=== PATIENT | male | born 1960 | race Caucasian/White ===

== ENCOUNTER 2017-06-10 13:34 | Inpatient (IN) | payer BC ==
[2017-06-10 15:32] VITALS: BMI 25.8
--- NOTE | 2017-06-10 17:38 | HP ---
CIWA Score - CIWA Score Nausea/Vomitin-No Nausea/No Vomiting Muscle Tremors: 4-Moderate,w/Arms Extend Anxiety: 4-Mod. Anxious/Guarded Agitation: 4-Moderately Restless Paroxysmal Sweats: 1-Minimal Palms Moist Orientation: 0-Oriented Tacttile Disturbances: 3-Moderate Itch/Numb/Burn Auditory Disturbances: 0-None Visual Disturbances: 0-None Headache: 0-None Present CIWA-Ar Total Score: 16 Admission ROS BHS - HPI Chief Complaint: DETOX TX FOR ALCOHOL DEPENDENCE Allergies/Adverse Reactions: Allergies Allergy/AdvReac Type Severity Reaction Status Date / Time No Known Allergies Allergy Verified 06/10/17 16:47 History of Present Illness: 56 Y/O MALE WITH A HX OF ALCOHOL, COCAINE AND MARIJUANA DEPENDENCE SEEKING DETOX TX Exam Limitations: No Limitations - Ebola screening Have you traveled outside of the country in the last 21 days: No Have you had contact with anyone from an Ebola affected area: No Have you been sick,other than usual withdrawal symptoms: No Do you have a fever: No - Review of Systems Constitutional: Chills, Night Sweats EENT: reports: Blurred Vision, Tearing, Dental Problems (MISSING TEETH/CROWNS) Respiratory: reports: No Symptoms reported Cardiac: reports: Lightheadedness GI: reports: Diarrhea, Nausea, Poor Fluid Intake, Vomiting : reports: No Symptoms Reported Musculoskeletal: reports: Back Pain, Joint Pain, Muscle Pain Integumentary: reports: No Symptoms Reported Neuro: reports: Headache, Numbness, Tingling, Tremors, Unsteady Gait (USES CANE) , Dizziness Endocrine: reports: No Symptoms Reported Hematology: reports: No Symptoms Reported Psychiatric: reports: Orientated x3, Anxious Other Systems: Reviewed and Negative Patient History - Patient Medical History Hx Anemia: No Hx Asthma: No Hx Chronic Obstructive Pulmonary Disease (COPD): No Hx Cardiac Disorders: No Hx Hypertension: Yes (ON MED) Hx Hypercholesterolemia: No HX Cerebrovascular Accident: No Hx Seizures: No Hx Diabetes: No Hx Gastrointestinal Disorders: No Hx Genitourinary Disorders: No Hx Sexually Transmitted Disorders: Yes (chlamydia) Hx Renal Disease (ESRD): No Hx Thyroid Disease: No Hx Human Immunodeficiency Virus (HIV): No (NEGATIVE HX) Hx Hepatitis C: No Hx Depression: No Hx Suicide Attempt: No (DENIES) Hx Bipolar Disorder: No Hx Schizophrenia: No - Patient Surgical History Past Surgical History: Yes Hx Neurologic Surgery: No Hx Cataract Extraction: No Hx Cardiac Surgery: No Hx Lung Surgery: No Hx Breast Surgery: No Hx Breast Biopsy: No Hx Abdominal Surgery: No Hx Appendectomy: No Hx Cholecystectomy: No Hx Genitourinary Surgery: No Hx Orthopedic Surgery: Yes (fx, right ankle) Anesthesia Reaction: No - PPD History Previous Implant?: Yes Documented Results: Negative w/o proof Implanted On Prior [facility] Admission?: No PPD to be Administered?: Yes - Reproductive History Patient is a Female of Child Bearing Age (11 -55 yrs old): No (MALE) Patient : (N/A) - Smoking Cessation Smoking history: Current some day smoker Have you smoked in the past 12 months: Yes Cigars Per Day: 1 Hx Chewing Tobacco Use: No Initiated information on smoking cessation: Yes 'Breaking Loose' booklet given: 06/10/17 - Substance & Tx. History Hx Alcohol Use: Yes Hx Substance Use: Yes Substance Use Type: Alcohol, Cocaine, Marijuana Hx Substance Use Treatment: Yes ([facility]) - Substances Abused Cocaine Route: Inhalation Frequency: 3-6 times per week Amount used: $20 Age of first use: 20 Date of Last Use: 06/09/17 Alcohol-wine/john Route: Oral Frequency: Daily Amount used: 3 pts. Age of first use: 14 Date of Last Use: 06/10/17 Marijuana Route: Oral Frequency: 3-6 times per week Amount used: $5 Age of first use: 21 Date of Last Use: 06/09/17 Family Disease History - Family Disease History Family Disease History: Heart Disease: Father (), Other: Mother ( ) Admission Physical Exam S - Vital Signs Vital Signs: Vital Signs - 24 hr 06/10/17 15:30 Temperature 98.1 F Pulse Rate 86 Respiratory 18 Rate Blood Pressure 132/100 - Physical General Appearance: Yes: Moderate Distress, Irritable, Anxious HEENTM: Yes: EOMI, Normocephalic, DARSHANA, Pharynx Normal Respiratory: Yes: Chest Non-Tender, Lungs Clear, Normal Breath Sounds, No Respiratory Distress Neck: Yes: No masses,lesions,Nodules, Supple, Trachea in good position Breast: Yes: Breast Exam Deferred Cardiology: Yes: Regular Rhythm, Regular Rate, S1, S2 Abdominal: Yes: Normal Bowel Sounds, Non Tender, Soft Genitourinary: Yes: Other (N/C) Back: Yes: Within Normal Limits Musculoskeletal: Yes: full range of Motion, Gait Steady Extremities: Yes: Normal Range of Motion, Non-Tender 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 NML intact, Fully Oriented, Alert Integumentary: Yes: Dry, Warm Lymphatic: Yes: Within Normal Limits - Diagnostic (1) Alcohol dependence with uncomplicated withdrawal Current Visit: Yes Status: Acute (2) Cannabis dependence, uncomplicated Current Visit: Yes Status: Acute (3) Cocaine dependence, uncomplicated Current Visit: Yes Status: Acute (4) Hypertension Current Visit: Yes Status: Chronic Qualifiers: Hypertension type: essential hypertension Qualified Code(s): I10 - Essential (primary) hypertension Cleared for Admission [facility] - Detox or Rehab [facility] Level of Care: Medically Managed Detox Regimen/Protocol: Librium [facility] Breath Alcohol Content Breath Alcohol Content: 0 Urine Drug Screen - Results Drug Screen Negative: No Urine Drug Screen Results: THC-Marijuana, PHIL-Cocaine
[2017-06-10] MEDS ORDERED: MAGNESIUM HYDROX 2400MG/30ML ORAL SUSPENSION 30 ML CUP PO PRN (17:44)
[2017-06-10] MEDS ORDERED: chlordiazePOXIDE HCL 25 MG CAPSULE PO ONE (17:44)
[2017-06-10] MEDS ORDERED: chlordiazePOXIDE HCL 25 MG CAPSULE PO PRN (17:44)
[2017-06-10] MEDS ORDERED: MENTHOL/PHENOL 1 EACH UD MM PRN (17:44)
[2017-06-10] MEDS ORDERED: ACETAMINOPHEN 325 MG TABLET (FP) PO PRN (17:44)
[2017-06-10] MEDS ORDERED: guaiFENesin/D-METHORPHAN HB 10 ML UNIT-DOSE CUPS PO PRN (17:44)
[2017-06-10] MEDS ORDERED: MAG HYDROX/AL HYDROX/SIMETH 30 ML UNIT-DOSE CUP PO PRN (17:44)
[2017-06-10] MEDS ORDERED: MAGNESIUM CITRATE 300 ML BOTTLE PO PRN (17:44)
[2017-06-10] MEDS ORDERED: LOPERAMIDE HCL 2 MG CAPSULE PO PRN (17:44)
[2017-06-10] MEDS ORDERED: P-EPHED 60MG/TRIPROLIDI 2.5MG TABLET PO PRN (17:44)
[2017-06-10] MEDS: THIAMINE HCL 100 MG TABLET (FP) PO SCH (22:36)
[2017-06-10] MEDS: chlordiazePOXIDE HCL 25 MG CAPSULE PO SCH (22:36)
[2017-06-11] MEDS: chlordiazePOXIDE HCL 25 MG CAPSULE PO SCH ×4 (05:35→22:42)
[2017-06-11] MEDS: PRENATAL VITAMINS W/ FOLIC ACID TABLET (FP) PO SCH (10:17)
[2017-06-11 10:34] LABS: MCH 33.1 pg (25.7-33.7); MEAN CELL VOLUME 97.5 fl (80-96); MEAN PLT VOLUME 8.7 fl (7.5-11.1); PLATELET COUNT 130 K/MM3 (134-434); WHITE BLOOD COUNT 3.3 K/mm3 (4.0-10.0)
[2017-06-11] MEDS ORDERED: amLODIPine BESYLATE 10 MG TABLET (FP) PO ONE (10:51)
[2017-06-11 11:44] LABS: ALBUMIN 3.3 g/dl (3.4-5.0); ANION GAP 10 (8-16); CALCIUM 8.8 mg/dL (8.5-10.1); CO2 28 mmol/L (21-32); CREATININE 0.9 mg/dL (0.7-1.3); GLUCOSE,RANDOM 98 mg/dL (74-106); SGOT/AST 18 U/L (15-37); SGPT/ALT 27 U/L (12-78)
[2017-06-11 11:46] LABS: ALK PHOS 55 U/L (45-117); BILIRUBIN,TOTAL 0.8 mg/dL (0.2-1.0); TOT PROT 5.9 g/dl (6.4-8.2)
--- NOTE | 2017-06-11 14:19 | EKG ---
Test Reason : Blood Pressure : / mmHG Vent. Rate : 097 BPM Atrial Rate : 097 BPM P-R Int : 170 ms QRS Dur : 078 ms QT Int : 378 ms P-R-T Axes : 053 011 053 degrees QTc Int : 480 ms NORMAL SINUS RHYTHM POSSIBLE LEFT ATRIAL ENLARGEMENT ST-T ABNORMALITIES ABNORMAL ECG NO PREVIOUS ECGS AVAILABLE REPEAT EKG IF CLINICALLY INDICATED Confirmed by LETITIA MORLEY MD ([id number]) on 06/11/2017 2:19:31 PM Referred By: Red Tran Confirmed By:LETITIA MORLEY MD
[2017-06-11 16:38] LABS: URINE APPEARANCE CLEAR; URINE BILIRUBIN NEGATIVE (NEGATIVE); URINE BLOOD NEGATIVE (NEGATIVE); URINE COLOR STRAW; URINE GLUCOSE (UA) NEGATIVE (NEGATIVE); URINE KETONE NEGATIVE (NEGATIVE); URINE LEUK ESTERASE NEGATIVE (NEGATIVE); URINE NITRITE NEGATIVE (NEGATIVE); URINE PROTEIN NEGATIVE (NEGATIVE); URINE UROBILINOGEN NEGATIVE mg/dL (0.2-1.0)
[2017-06-11] MEDS: IBUPROFEN 400 MG TABLET (FP) PO PRN (17:08)
[2017-06-11] MEDS: diphenhydrAMINE HCL 50 MG CAPSULE PO PRN (22:42)
[2017-06-11] MEDS: THIAMINE HCL 100 MG TABLET (FP) PO SCH (22:42)
[2017-06-12] MEDS: chlordiazePOXIDE HCL 25 MG CAPSULE PO SCH ×3 (05:49→17:33)
[2017-06-12] MEDS: PRENATAL VITAMINS W/ FOLIC ACID TABLET (FP) PO SCH (10:14)
[2017-06-12] MEDS: amLODIPine BESYLATE 10 MG TABLET (FP) PO SCH (10:14)
[2017-06-12] MEDS: IBUPROFEN 400 MG TABLET (FP) PO PRN (10:15)
--- NOTE | 2017-06-12 11:36 | PN ---
[facility] CIWA - CIWA Score Nausea/Vomitin-No Nausea/No Vomiting Muscle Tremors: 4-Moderate,w/Arms Extend Anxiety: 4-Mod. Anxious/Guarded Agitation: 4-Moderately Restless Paroxysmal Sweats: 1-Minimal Palms Moist Orientation: 0-Oriented Tacttile Disturbances: 3-Moderate Itch/Numb/Burn Auditory Disturbances: 0-None Visual Disturbances: 0-None Headache: 0-None Present CIWA-Ar Total Score: 16 BHS Progress Note (SOAP) Subjective: ANXIETY,SLIGHT TREMORS,SWEATS. Objective: 06/12/17 11:36 Vital Signs Temperature 95.4 F L 06/12/17 09:23 Pulse Rate 62 06/12/17 09:23 Respiratory Rate 18 06/12/17 09:23 Blood Pressure 121/89 06/12/17 09:23 O2 Sat by Pulse Oximetry (%) Laboratory Last Values WBC 3.3 K/mm3 (4.0-10.0) L 06/11/17 06:30 RBC 4.11 M/mm3 (4.00-5.60) 06/11/17 06:30 Hgb 13.6 GM/dL (11.7-16.9) 06/11/17 06:30 Hct 40.1 % (35.4-49) 06/11/17 06:30 MCV 97.5 fl (80-96) H 06/11/17 06:30 MCH 33.1 pg (25.7-33.7) 06/11/17 06:30 MCHC 34.0 g/dl (32.0-35.9) 06/11/17 06:30 RDW 13.0 % (11.9-15.9) 06/11/17 06:30 Plt Count 130 K/MM3 (134-434) L 06/11/17 06:30 MPV 8.7 fl (7.5-11.1) 06/11/17 06:30 Sodium 143 mmol/L (136-145) 06/11/17 06:30 Potassium 3.8 mmol/L (3.5-5.1) 06/11/17 06:30 Chloride 105 mmol/L (98-107) 06/11/17 06:30 Carbon Dioxide 28 mmol/L (21-32) 06/11/17 06:30 Anion Gap 10 (8-16) 06/11/17 06:30 BUN 9 mg/dL (7-18) 06/11/17 06:30 Creatinine 0.9 mg/dL (0.7-1.3) 06/11/17 06:30 Creat Clearance w eGFR > 60 (>60) 06/11/17 06:30 Random Glucose 98 mg/dL (74-106) 06/11/17 06:30 Calcium 8.8 mg/dL (8.5-10.1) 06/11/17 06:30 Total Bilirubin 0.8 mg/dL (0.2-1.0) 06/11/17 06:30 AST 18 U/L (15-37) 06/11/17 06:30 ALT 27 U/L (12-78) 06/11/17 06:30 Alkaline Phosphatase 55 U/L (45-117) 06/11/17 06:30 Total Protein 5.9 g/dl (6.4-8.2) L 06/11/17 06:30 Albumin 3.3 g/dl (3.4-5.0) L 06/11/17 06:30 Urine Color Straw 06/11/17 15:00 Urine Appearance Clear 06/11/17 15:00 Urine pH 8.0 (5.0-8.0) 06/11/17 15:00 Ur Specific [place] 1.010 (1.005-1.025) 06/11/17 15:00 Urine Protein Negative (NEGATIVE) 06/11/17 15:00 Urine Glucose (UA) Negative (NEGATIVE) 06/11/17 15:00 Urine Ketones Negative (NEGATIVE) 06/11/17 15:00 Urine Blood Negative (NEGATIVE) 06/11/17 15:00 Urine Nitrite Negative (NEGATIVE) 06/11/17 15:00 Urine Bilirubin Negative (NEGATIVE) 06/11/17 15:00 Urine Urobilinogen Negative mg/dL (0.2-1.0) 06/11/17 15:00 Ur Leukocyte Esterase Negative (NEGATIVE) 06/11/17 15:00 RPR Titer Nonreactive (NONREACTIVE) 06/11/17 06:30 Assessment: 06/12/17 11:36 WITHDRAWAL SX Plan: CONTINUE DETOX
[2017-06-12] MEDS: THIAMINE HCL 100 MG TABLET (FP) PO SCH (22:24)
[2017-06-12] MEDS: chlordiazePOXIDE 5 MG CAPSULE PO SCH (22:25)
[2017-06-12] MEDS: diphenhydrAMINE HCL 50 MG CAPSULE PO PRN (22:25)
[2017-06-13] MEDS: chlordiazePOXIDE 5 MG CAPSULE PO SCH ×3 (06:09→17:44)
[2017-06-13] MEDS: PRENATAL VITAMINS W/ FOLIC ACID TABLET (FP) PO SCH (10:40)
[2017-06-13] MEDS: amLODIPine BESYLATE 10 MG TABLET (FP) PO SCH (10:41)
--- NOTE | 2017-06-13 10:50 | PN ---
[facility] CIWA - CIWA Score Nausea/Vomitin-No Nausea/No Vomiting Muscle Tremors: 4-Moderate,w/Arms Extend Anxiety: 4-Mod. Anxious/Guarded Agitation: 3 Paroxysmal Sweats: 2 Orientation: 0-Oriented Tacttile Disturbances: 2-Mild Itch/Numbness/Burn Auditory Disturbances: 0-None Visual Disturbances: 0-None Headache: 0-None Present CIWA-Ar Total Score: 15 BHS Progress Note (SOAP) Subjective: SLIGHT ANXIETY,SWEATS TREMORS. ALERT O X 3, NAD. Objective: 06/13/17 10:49 Vital Signs Temperature 96.7 F L 06/13/17 06:56 Pulse Rate 84 06/13/17 09:17 Respiratory Rate 18 06/13/17 09:17 Blood Pressure 131/92 06/13/17 09:17 O2 Sat by Pulse Oximetry (%) Laboratory Last Values WBC 3.3 K/mm3 (4.0-10.0) L 06/11/17 06:30 RBC 4.11 M/mm3 (4.00-5.60) 06/11/17 06:30 Hgb 13.6 GM/dL (11.7-16.9) 06/11/17 06:30 Hct 40.1 % (35.4-49) 06/11/17 06:30 MCV 97.5 fl (80-96) H 06/11/17 06:30 MCH 33.1 pg (25.7-33.7) 06/11/17 06:30 MCHC 34.0 g/dl (32.0-35.9) 06/11/17 06:30 RDW 13.0 % (11.9-15.9) 06/11/17 06:30 Plt Count 130 K/MM3 (134-434) L 06/11/17 06:30 MPV 8.7 fl (7.5-11.1) 06/11/17 06:30 Sodium 143 mmol/L (136-145) 06/11/17 06:30 Potassium 3.8 mmol/L (3.5-5.1) 06/11/17 06:30 Chloride 105 mmol/L (98-107) 06/11/17 06:30 Carbon Dioxide 28 mmol/L (21-32) 06/11/17 06:30 Anion Gap 10 (8-16) 06/11/17 06:30 BUN 9 mg/dL (7-18) 06/11/17 06:30 Creatinine 0.9 mg/dL (0.7-1.3) 06/11/17 06:30 Creat Clearance w eGFR > 60 (>60) 06/11/17 06:30 Random Glucose 98 mg/dL (74-106) 06/11/17 06:30 Calcium 8.8 mg/dL (8.5-10.1) 06/11/17 06:30 Total Bilirubin 0.8 mg/dL (0.2-1.0) 06/11/17 06:30 AST 18 U/L (15-37) 06/11/17 06:30 ALT 27 U/L (12-78) 06/11/17 06:30 Alkaline Phosphatase 55 U/L (45-117) 06/11/17 06:30 Total Protein 5.9 g/dl (6.4-8.2) L 06/11/17 06:30 Albumin 3.3 g/dl (3.4-5.0) L 06/11/17 06:30 Urine Color Straw 06/11/17 15:00 Urine Appearance Clear 06/11/17 15:00 Urine pH 8.0 (5.0-8.0) 06/11/17 15:00 Ur Specific [place] 1.010 (1.005-1.025) 06/11/17 15:00 Urine Protein Negative (NEGATIVE) 06/11/17 15:00 Urine Glucose (UA) Negative (NEGATIVE) 06/11/17 15:00 Urine Ketones Negative (NEGATIVE) 06/11/17 15:00 Urine Blood Negative (NEGATIVE) 06/11/17 15:00 Urine Nitrite Negative (NEGATIVE) 06/11/17 15:00 Urine Bilirubin Negative (NEGATIVE) 06/11/17 15:00 Urine Urobilinogen Negative mg/dL (0.2-1.0) 06/11/17 15:00 Ur Leukocyte Esterase Negative (NEGATIVE) 06/11/17 15:00 RPR Titer Nonreactive (NONREACTIVE) 06/11/17 06:30 Assessment: 06/13/17 10:49 WITHDRAWAL SX Plan: CONTINUE DETOX
[2017-06-13] MEDS: IBUPROFEN 400 MG TABLET (FP) PO PRN (17:46)
[2017-06-13 22:18] VITALS: TEMP 96.5
[2017-06-13] MEDS: chlordiazePOXIDE HCL 10 MG CAPSULE PO SCH (22:37)
[2017-06-13] MEDS: THIAMINE HCL 100 MG TABLET (FP) PO SCH (22:37)
[2017-06-14] MEDS: chlordiazePOXIDE HCL 10 MG CAPSULE PO SCH (05:32)
[2017-06-14 06:36] VITALS: BP 135/97; PULSE 57
== END 2017-06-14 09:40 | disposition home or self-care (01) | DRG 774 ==
LOC: YASAS 13:34 → Y3N 17:03
PROVIDERS: ADMIT Internal Medicine; ATTEND Internal Medicine
PROC: HZ2ZZZZ Detoxification Services for Substance Abuse Treatment (ICD-10-PCS; principal; 2017-06-10)
DX: F10.230 Alcohol dependence with withdrawal, uncomplicated (principal); F14.20 Cocaine dependence, uncomplicated; F12.20 Cannabis dependence, uncomplicated; F17.210 Nicotine dependence, cigarettes, uncomplicated; I10 Essential (primary) hypertension; Z87.438 Personal history of other diseases of male genital organs
CPT/HCPCS: 36415; 80053; 81003; 85027; 86593; 93005; 93010